=== PATIENT | male | born 1960 | race Caucasian/White ===

== ENCOUNTER 2019-11-04 01:15 | Day surgery (SDC) | payer OTHER, SELFPAY ==
[2019-10-30 14:55] VITALS: BMI 22.1
[2019-11-04 08:24] VITALS: BP 122/76; PULSE 67; RESP 20; TEMP 36.8; O2SAT 98; BMI 21.7
[2019-11-04] MEDS: LACTATED RINGERS 1,000 ML 150 ML IV CONT (08:29)
--- NOTE | 2019-11-04 08:36 | P.CONGI_ITS ---
Assessment and Plan Additional Plan This is a 59-year-old white male patient seen in evaluation at the request of Dr. Kenrick Moses. Patient has a history of cerebral palsy. He has a long history of GE reflux disease. He denies heartburn. Except occasionally after eating spicy foods. He has been treated with proton pump inhibitor for 15 years. Current we takes pantoprazole 20 mg p.o. daily. Patient denies dysphagia. He denies bleeding. He denies weight loss. Current medications include pantoprazole 20 mg p.o. daily. Sertraline. Trazodone. No stated drug allergies. Family history is noncontributory. Physical exam reveals him to be alert. Oriented x3. He is anicteric. Extremities reveal some flexion contractures. He has choreographic movements. Lungs are clear to auscultation and percussion. Heart is without murmur or extra sounds. Abdominal exam bowel sounds are present soft Nontender with no organomegaly. Impression 1. Cerebral palsy. 2. Chronic GE reflux disease. Plan is to proceed with EGD because of chronicity of his GE reflux disease. Continue pantoprazole for now. Anti-reflux measures are encourage. GI Consult Note Consult date/time: 11/04/19 08:36 HPI: Mikie Mathis is a 59 year old male [facility] Past Medical History Medical History (Updated 11/04/19 @ 08:37 by Irvin Oliver MD) Anxiety Cerebral palsy mild case affecting speech and left hand Depression Meds Home Medications and Allergies Home Medications Medication Instructions Recorded Confirmed Type pantoprazole 20 mg PO DAILY 10/30/19 10/30/19 History sertraline 100 mg PO DAILY 10/30/19 10/30/19 History trazodone 100 mg PO DAILY 10/30/19 10/30/19 History Allergies Allergy/AdvReac Type Severity Reaction Status Date / Time No Known Allergies Allergy Verified 11/04/19 08:22 Vital Signs Vital Signs - 24 hr 11/04/19 08:24 Temperature 36.8 C Pulse Rate 67 Respiratory Rate 20 Blood Pressure 122/76 Pulse Oximetry 98
--- NOTE | 2019-11-04 08:37 | P.PNAN_ITS ---
Anes - Initial Pre Proc Eval Procedure: Operation Date: 11/04/19 09:00 Proposed Procedures p Esophagogastroduodenoscopy - Abiel Vila MD Date/Time: 11/04/19 08:37 Surgeon: Abiel Vila MD Pre Op Diagnosis: GERD Patient Data Age: 59 Gender: M Height: 5 ft 8 in Weight: 64.7 kg Last Vital Signs Temp 98.2 F 11/04/19 08:24 Pulse 67 11/04/19 08:24 Resp 20 11/04/19 08:24 BP 122/76 11/04/19 08:24 Pulse Ox 98 11/04/19 08:24 Allergies Allergy/AdvReac Type Severity Reaction Status Date / Time No Known Allergies Allergy Verified 11/04/19 08:22 Home Medications Medication Instructions Recorded Confirmed Type pantoprazole 20 mg PO DAILY 10/30/19 10/30/19 History sertraline 100 mg PO DAILY 10/30/19 10/30/19 History trazodone 100 mg PO DAILY 10/30/19 10/30/19 History Patient hx anesthesia problems: none Family hx anesthesia problems: none [facility] Past Medical History Medical History (Updated 11/04/19 @ 08:37 by Irvin Oliver MD) Anxiety Cerebral palsy mild case affecting speech and left hand Depression Anes - Eval Final PreProcedure Day of Procedure 11/04/19 08:37 Patient weight: normal Heart: regular rate and rhythm Lungs: clear to auscultation Airway: Mallampati scale class II Neurological: alert and oriented Last oral intake: >/= 8 hours ASA classification: II Anesthetic plan: proceed Anesthesia type and monitoring: general GIVS and standard monitoring Informed Consent: The patient's anesthetic plan and its attendant risks and benefits were discussed with the patient/family/POA. Questions were solicited and answers provided to the satisfaction of the patient/family/POA.
[2019-11-04] MEDS: BENZOCAINE (*SP) 60 ML SPRAY CAN (HURRICAINE) 1 SPRAY MUCOUS MEM (09:17)
[2019-11-04 09:25] VITALS: BP 90/58; PULSE 62; RESP 17; O2SAT 95
[2019-11-04 09:35] VITALS: BP 100/67; PULSE 59; RESP 15; O2SAT 98
[2019-11-04 09:45] VITALS: BP 117/76; PULSE 65; RESP 20; O2SAT 99
== END 2019-11-04 10:03 | disposition home or self-care (01) ==
PROVIDERS: PCP Family Medicine; Visit Provider Internal Medicine Gastroenterology
PROC: 0DJ08ZZ Inspection of Upper Intestinal Tract, Via Natural or Artificial Opening Endoscopic (ICD-10-PCS; CPT 43235; principal; 2019-11-04 09:00)
DX: K25.3 Acute gastric ulcer without hemorrhage or perforation (principal); K29.50 Unspecified chronic gastritis without bleeding; K21.9 Gastro-esophageal reflux disease without esophagitis; G80.9 Cerebral palsy, unspecified; F41.8 Other specified anxiety disorders
CPT/HCPCS: 43239; 88305; 88342; J2704; J7120

== ENCOUNTER 2022-01-11 01:01 | Day surgery (SDC) | payer OTHER, SELFPAY ==
[2021-12-29 12:18] VITALS: BMI 22.1
--- NOTE | 2022-01-11 07:56 | WPDANESEPPF ---
Anes - Initial Pre Proc Eval Procedure: Operation Date: 01/11/22 09:30 Proposed Procedures p Screening Colonoscopy - Abiel Vila MD Date/Time: 01/11/22 07:56 Surgeon: Abiel Vila MD Pre Op Diagnosis: neoplasm screening Patient Data Age: 61 Gender: M Height: 1.73 m Weight: 66 kg Allergies Allergy/AdvReac Type Severity Reaction Status Date / Time No Known Allergies Allergy Verified 01/11/22 08:25 Home Medications Medication Instructions Recorded Confirmed Type sertraline 100 mg PO DAILY 10/30/19 01/11/22 History trazodone 100 mg PO DAILY 10/30/19 01/11/22 History pantoprazole 10 mg PO DAILY 12/29/21 01/11/22 History Patient hx anesthesia problems: none Family hx anesthesia problems: none Results Review: All pre-operative results and documents have been reviewed as part of the pre-operative evaluation. COUNTS INCLUDE 234 BEDS AT THE [facility] Past Medical History Medical History (Updated 03/21/21 @ 13:19 by Abiel Vila MD) Anxiety Cerebral palsy mild case affecting speech and left hand Depression Social History Social History Years smoked: 15 Smoking status: Former smoker Tobacco type: cigarettes Substance use type: does not use Living arrangements: alone Spiritual care concerns: No Anes - Eval Final PreProcedure Day of Procedure 01/11/22 07:56 Patient weight: normal Heart: regular rate and rhythm Lungs: clear to auscultation and normal air movement Airway: Mallampati scale class II Neurological: alert and oriented Last oral intake: >/= 8 hours ASA classification: II Emergent: no Anesthetic plan: proceed Anesthesia type and monitoring: general GIVS Results Review: All pre-operative results and documents have been reviewed as part of the pre-operative evaluation. Informed Consent: The patient's anesthetic plan and its attendant risks and benefits were discussed with the patient/family/POA. Questions were solicited and answers provided to the satisfaction of the patient/family/POA.
[2022-01-11 08:27] VITALS: BP 148/86; PULSE 78; RESP 18; TEMP 36.4; O2SAT 98; BMI 21.6
[2022-01-11] MEDS: LACTATED RINGERS 1,000 ML 150 ML IV CONT (08:48)
--- NOTE | 2022-01-11 09:12 | WPDGICN ---
Assessment and Plan Assessment and plan (1) Encounter for screening colonoscopy: Code(s): Z12.11 - Encounter for screening for malignant neoplasm of colon Status: Acute Assessment and Plan: Patient presents for screening colonoscopy. Appears to be at average risk for colon polyps. Further recommendations will be given after endoscopy. GI Consult Note Consult date/time: 01/11/22 09:12 HPI: Mikie Mathis is a 61 year old male Presents for screening colonoscopy. Patient has a history of cerebral palsy. States his current weight appetite and bowel movements are normal. He denies abdominal pain. He has had no bleeding. He does report over the last 2 weeks feeling a bump in his anus when wiping. He has had no pain or bleeding from this. Past history is significant for GE reflux and heartburn which is stable. EGD in 2019 was noted most recently. Family history is noncontributory. Review of Systems Review of Systems: All systems reviewed & are unremarkable except as noted in HPI and below PMFSH Past Medical History Medical History (Updated 01/11/22 @ 09:13 by Abiel Vila MD) Anxiety Cerebral palsy mild case affecting speech and left hand Depression Social History Social History Years smoked: 15 Smoking status: Former smoker Tobacco type: cigarettes Substance use type: does not use Living arrangements: alone Spiritual care concerns: No Meds Home Medications and Allergies Home Medications Medication Instructions Recorded Confirmed Type sertraline 100 mg PO DAILY 10/30/19 01/11/22 History trazodone 100 mg PO DAILY 10/30/19 01/11/22 History pantoprazole 10 mg PO DAILY 12/29/21 01/11/22 History Allergies Allergy/AdvReac Type Severity Reaction Status Date / Time No Known Allergies Allergy Verified 01/11/22 08:25 Vital Signs Vital Signs - 24 hr 01/11/22 08:27 Temperature 97.5 F L Pulse Rate 78 Respiratory Rate 18 Blood Pressure 148/86 H Pulse Oximetry 98 Exam Narrative: Physical exam reveals patient be alert. Vital signs stable. HEENT exam reveals no icterus. Lungs are clear. Heart without murmur. Abdomen bowel sounds present soft nontender with no hepatosplenomegaly. Digital rectal exam is Reveals an external hemorrhoid on the right..
[2022-01-11 10:07] VITALS: BP 96/61; PULSE 62; RESP 16; O2SAT 98
[2022-01-11 10:17] VITALS: BP 102/67; PULSE 61; RESP 17; O2SAT 96
[2022-01-11 10:27] VITALS: BP 120/84; PULSE 67; RESP 15; O2SAT 100
== END 2022-01-11 10:31 | disposition home or self-care (01) ==
PROVIDERS: Visit Provider Internal Medicine Gastroenterology
PROC: 0DJD8ZZ Inspection of Lower Intestinal Tract, Via Natural or Artificial Opening Endoscopic (ICD-10-PCS; CPT 45378; principal; 2022-01-11 09:30)
DX: Z12.11 Encounter for screening for malignant neoplasm of colon (principal); K64.4 Residual hemorrhoidal skin tags; K57.30 Diverticulosis of large intestine without perforation or abscess without bleeding; G80.9 Cerebral palsy, unspecified; Z87.891 Personal history of nicotine dependence; F41.8 Other specified anxiety disorders
CPT/HCPCS: 45378; J2704; J7120